=== PATIENT | male | born 1970 | race Two or more races ===

== ENCOUNTER → 2016-12-22 | Outpatient (CLI) | payer OTHER ==
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
== END ==
LOC: HRAD 10:35
DX: M25.519 Pain in unspecified shoulder (principal); M25.562 Pain in left knee
CPT/HCPCS: 73030; 73560